=== PATIENT | male | born 1985 | race Caucasian/White ===

== ENCOUNTER 2017-08-04 08:58 | Emergency (ER) | payer OTHER ==
[~2017-08-04] VITALS: Ht 180.3 cm; Wt 80.6 kg
[~2017-08-04 08:58] MED LIST: MOTRIN800 MG PO; NOHOMEMEDS
[2017-08-04 09:33] LABS: BASOPHIL COUNT 0.1 K/uL (0-0.1); EOSINOPHIL (%) 4.8 % (0-5); EOSINOPHIL COUNT 0.4 K/uL (0-0.3); HEMATOCRIT 43.3 % (38.0-50.0); IMMATURE GRANULOCYTE (%) 0.3 % (0.0-0.7); INSTRUMENT ABS NEUTROPHIL CT 4.3 K/uL; LYMPHOCYTE COUNT 2.1 K/uL (1.0-2.8); MCH 30.1 PG (29.0-34.0); MCHC 33.5 G/DL (30.0-36.0); MCV 89.8 FL (86-99); MONOCYTE (%) 6.2 % (3-12); MONOCYTE COUNT 0.5 K/uL (0-0.8); NEUTROPHIL (%) 59.2 % (45-76); NEUTROPHIL COUNT 4.3 K/uL (1.8-6.4); PLATELET COUNT 200 K/uL (156-360); RBC DIS.WIDTH-CV 12.9 % (11.8-14.6); RBC DIS.WIDTH-SD 42.5 % (39-53); RED BLOOD COUNT 4.82 M/uL (4.00-5.50); WHITE BLOOD COUNT 7.3 K/uL (4.1-10.2)
[2017-08-04 09:43] LABS: CHLORIDE 104 mEq/L (99-109); POTASSIUM 4.5 mEq/L (3.7-5.4); SODIUM 141 mEq/L (136-147)
[2017-08-04 09:44] LABS: GLUCOSE 86 mg/dL (70-99)
[2017-08-04 09:46] LABS: ANION GAP 11 MEQ/L (2-14)
[2017-08-04 09:48] LABS: GFR ESTIMATE (CALCULATED) > 59 mL/min/
[2017-08-04 09:49] LABS: UREA NITROGEN (BUN) 12 mg/dL (9-23)
[2017-08-04 09:56] LABS: TROP-I INTERPRETATION NEGATIVE; TROPONIN-I < 0.01 ng/mL (0.0-0.30)
[2017-08-04 12:18] LABS: TROP-I INTERPRETATION NEGATIVE; TROPONIN-I < 0.01 ng/mL (0.0-0.30)
[2017-08-04 12:56] VITALS: BP 120/46
[2017-08-05] MEDS ORDERED: NAPROSYN500 MG PO (12:20)
[2017-08-05] MEDS ORDERED: FLEXERIL5 MG PO (12:20)
== END 2017-08-04 13:23 | disposition home or self-care (01) ==
LOC: EME 08:58
PROVIDERS: Emergency Medicine
DX: R07.89 Other chest pain (principal); J40 Bronchitis, not specified as acute or chronic; F17.210 Nicotine dependence, cigarettes, uncomplicated
CPT/HCPCS: 71010; 80048; 84484; 85025; 93005; 94640; 99281; 99285

== ENCOUNTER 2017-08-05 08:23 | Emergency (ER) | payer OTHER ==
[~2017-08-05] VITALS: Ht 180.3 cm; Wt 84.6 kg
[2017-08-05 09:34] LABS: BASOPHIL COUNT 0.1 K/uL (0-0.1); EOSINOPHIL (%) 4.5 % (0-5); EOSINOPHIL COUNT 0.3 K/uL (0-0.3); HEMATOCRIT 40.4 % (38.0-50.0); IMMATURE GRANULOCYTE (%) 0.1 % (0.0-0.7); INSTRUMENT ABS NEUTROPHIL CT 3.9 K/uL; LYMPHOCYTE COUNT 1.8 K/uL (1.0-2.8); MCH 29.8 PG (29.0-34.0); MCHC 33.2 G/DL (30.0-36.0); MCV 89.8 FL (86-99); MEAN PLAT.VOLUME 9.8 uM^3 (9.0-12.4); MONOCYTE (%) 9.4 % (3-12); MONOCYTE COUNT 0.6 K/uL (0-0.8); NEUTROPHIL (%) 58.5 % (45-76); NEUTROPHIL COUNT 3.9 K/uL (1.8-6.4); PLATELET COUNT 173 K/uL (156-360); RBC DIS.WIDTH-CV 12.7 % (11.8-14.6); RBC DIS.WIDTH-SD 41.9 % (39-53); WHITE BLOOD COUNT 6.7 K/uL (4.1-10.2)
[2017-08-05 09:41] LABS: D-DIMER ELISA < 150.00 ng/mLDDU (<230)
[2017-08-05 09:54] LABS: TROP-I INTERPRETATION NEGATIVE; TROPONIN-I < 0.01 ng/mL (0.0-0.30)
[2017-08-05 09:56] LABS: CHLORIDE 101 mEq/L (99-109); POTASSIUM 4.3 mEq/L (3.7-5.4); SODIUM 138 mEq/L (136-147)
[2017-08-05 09:59] LABS: GLUCOSE 97 mg/dL (70-99)
[2017-08-05 10:00] LABS: ANION GAP 9 MEQ/L (2-14); TOTAL BILIRUBIN 0.5 mg/dL (0.0-1.0)
[2017-08-05 10:02] LABS: ALKALINE PHOSPHATASE 41 IU/L (3-129); GFR ESTIMATE (CALCULATED) > 59 mL/min/
[2017-08-05 10:03] LABS: UREA NITROGEN (BUN) 16 mg/dL (9-23)
[2017-08-05 12:04] LABS: TROP-I INTERPRETATION NEGATIVE; TROPONIN-I < 0.01 ng/mL (0.0-0.30)
[2017-08-05] MEDS ORDERED: FLEXERIL5 MG PO (12:20)
[2017-08-05] MEDS ORDERED: NAPROSYN500 MG PO (12:20)
[2017-08-05 12:38] VITALS: BP 137/86
== END 2017-08-05 12:39 | disposition home or self-care (01) ==
LOC: EME 08:23
PROVIDERS: Emergency Medicine
DX: R07.9 Chest pain, unspecified (principal); M54.6 Pain in thoracic spine; R05 Cough; R06.00 Dyspnea, unspecified; F17.200 Nicotine dependence, unspecified, uncomplicated
CPT/HCPCS: 71020; 71275; 80053; 84484; 85025; 85379; 93005; 94640; 99281; 99285; J1885

== ENCOUNTER 2017-08-19 16:54 | Emergency (ER) | payer OTHER ==
[~2017-08-19] VITALS: Ht 180.3 cm; Wt 95.0 kg
[~2017-08-19 16:54] MED LIST changes: +FLEXERIL5 MG PO; +NAPROSYN500 MG PO
[2017-08-19 17:30] VITALS: BP 140/84
== END 2017-08-19 18:27 ==
LOC: EME 16:54
DX: Z02.89 Encounter for other administrative examinations (principal); F14.10 Cocaine abuse, uncomplicated; F10.10 Alcohol abuse, uncomplicated; R07.9 Chest pain, unspecified; F17.210 Nicotine dependence, cigarettes, uncomplicated; Z88.1 Allergy status to other antibiotic agents
CPT/HCPCS: 99281; 99284

== ENCOUNTER 2017-10-09 22:15 | Emergency (ER) | payer OTHER ==
[~2017-10-09] VITALS: Ht 177.8 cm; Wt 79.7 kg
[2017-10-09 22:39] LABS: HEMATOCRIT 46.1 % (38.0-50.0); HEMOGLOBIN 15.8 G/DL (12.5-16.6); MCHC 34.3 G/DL (30.0-36.0); MCV 87.6 FL (86-99); PLATELET COUNT 244 K/uL (156-360); RBC DIS.WIDTH-CV 12.1 % (11.8-14.6); RBC DIS.WIDTH-SD 38.9 % (39-53); RED BLOOD COUNT 5.26 M/uL (4.00-5.50); WHITE BLOOD COUNT 6.6 K/uL (4.1-10.2)
[2017-10-09 22:52] LABS: ALBUMIN 4.3 g/dL (3.2-4.8)
[2017-10-09 22:53] LABS: CHLORIDE 100 mEq/L (99-109); POTASSIUM 3.7 mEq/L (3.7-5.4); SODIUM 139 mEq/L (136-147)
[2017-10-09 22:55] LABS: GLUCOSE 117 mg/dL (70-99); TOTAL PROTEIN 7.3 g/dL (6.4-8.3)
[2017-10-09 22:57] LABS: TOTAL BILIRUBIN 0.8 mg/dL (0.0-1.0)
[2017-10-09 22:58] LABS: ALKALINE PHOSPHATASE 44 IU/L (3-129)
[2017-10-09 22:59] LABS: CREATININE 1.1 mg/dL (0.6-1.3); GFR ESTIMATE (CALCULATED) > 59 mL/min/ (58.99-99999)
[2017-10-09 23:00] LABS: AST (GOT) 40 IU/L (2-34); UREA NITROGEN (BUN) 15 mg/dL (9-23)
[2017-10-09 23:01] LABS: ALT (GPT) 65 IU/L (3-49)
[2017-10-10 02:29] LABS: APPEARANCE SL.HAZY ((CLEAR)); BILIRUBIN NEGATIVE; BLOOD NEGATIVE; COLOR YELLOW ((YELLOW)); GLUCOSE (STRIP) NEGATIVE; KETONES NEGATIVE; LEUKOCYTES NEGATIVE; NITRITE NEGATIVE; PROTEIN (STRIP) 30; SPECIFIC GRAVITY 1.027 (1.000-1.030)
[2017-10-10 02:36] LABS: BACTERIA NONE SEEN /HPF; EPITHELIAL CELLS RARE /HPF; MUCUS 2+ /LPF; UCUL ADDED? NO; WHITE BLOOD CELLS 0-5 /HPF (0-5)
[2017-10-10 03:00] VITALS: BP 113/71
== END 2017-10-10 03:00 | disposition home or self-care (01) ==
LOC: EME 22:15
DX: R11.0 Nausea (principal); R19.7 Diarrhea, unspecified; J45.909 Unspecified asthma, uncomplicated; F17.200 Nicotine dependence, unspecified, uncomplicated; Z88.1 Allergy status to other antibiotic agents
CPT/HCPCS: 80053; 81003; 85027; J7030

== ENCOUNTER 2017-10-29 16:54 | Emergency (ER) | payer OTHER ==
[~2017-10-29] VITALS: Ht 177.8 cm; Wt 81.1 kg
[2017-10-29 17:01] VITALS: BP 122/77
[2017-10-29] MEDS ORDERED: AUGMENTIN875 MG PO (22:24)
== END 2017-10-29 18:38 | disposition left against medical advice (07) ==
LOC: EME 16:54
DX: S61.411A Laceration without foreign body of right hand, initial encounter (principal); W25.XXXA Contact with sharp glass, initial encounter; F10.129 Alcohol abuse with intoxication, unspecified; Z53.20 Procedure and treatment not carried out because of patient's decision for unspecified reasons; F17.200 Nicotine dependence, unspecified, uncomplicated; Z88.1 Allergy status to other antibiotic agents
CPT/HCPCS: 99281; 99283

== ENCOUNTER 2017-10-29 21:15 | Emergency (ER) | payer OTHER ==
[2017-10-29 21:34] VITALS: BP 138/85
[2017-10-29] MEDS ORDERED: AUGMENTIN875 MG PO (22:24)
== END 2017-10-29 22:33 | disposition left against medical advice (07) ==
LOC: EME → EDBD 21:15 → EME 21:15
DX: S61.411A Laceration without foreign body of right hand, initial encounter (principal); Z53.20 Procedure and treatment not carried out because of patient's decision for unspecified reasons; Z88.1 Allergy status to other antibiotic agents; F17.200 Nicotine dependence, unspecified, uncomplicated
CPT/HCPCS: 73130; 99281; 99283

== ENCOUNTER 2018-02-16 12:59 | Emergency (ER) | payer OTHER ==
[~2018-02-16] VITALS: Ht 182.9 cm; Wt 83.1 kg
[~2018-02-16 12:59] MED LIST changes: +AUGMENTIN875 MG PO
[2018-02-16 13:07] VITALS: BP 125/74
[2018-02-16] MEDS ORDERED: NAPROSYN500 MG PO (14:18)
[2018-02-16] MEDS ORDERED: CLEOCIN300 MG PO (14:18)
== END 2018-02-16 14:38 | disposition home or self-care (01) ==
LOC: EME 12:59
DX: S61.012A Laceration without foreign body of left thumb without damage to nail, initial encounter (principal); W45.8XXA Other foreign body or object entering through skin, initial encounter; L08.9 Local infection of the skin and subcutaneous tissue, unspecified; F17.200 Nicotine dependence, unspecified, uncomplicated
CPT/HCPCS: 73140; 99281; 99283

== ENCOUNTER 2018-05-10 18:59 | Emergency (ER) | payer OTHER ==
[~2018-05-10] VITALS: Ht 175.3 cm; Wt 88.1 kg
[~2018-05-10 18:59] MED LIST changes: +CLEOCIN300 MG PO
[2018-05-10] MEDS ORDERED: INDOCIN50 MG PO (20:20)
[2018-05-10] MEDS ORDERED: PEN-VEE K,VEET500 MG PO (20:20)
[2018-05-10] MEDS ORDERED: ULTRACET1 TABLET PO ×2 (20:20→20:21)
[2018-05-10] MEDS ORDERED: LIDOCAINE20 MG/1 M5 PO (20:22)
[2018-05-10 20:54] VITALS: BP 129/78
== END 2018-05-10 20:55 | disposition home or self-care (01) ==
LOC: EME 18:59
DX: K02.9 Dental caries, unspecified (principal); F17.200 Nicotine dependence, unspecified, uncomplicated; F90.9 Attention-deficit hyperactivity disorder, unspecified type; Z88.8 Allergy status to other drugs, medicaments and biological substances
CPT/HCPCS: 99281; 99284